=== PATIENT | female | born 1985 | race Caucasian/White ===

== ENCOUNTER → 2021-03-03 | Outpatient (REF) | LOC: M LAB 09:18 | PROVIDERS: ATTEND Nurse Practitioner Adult Health | DX: Z00.00 Encounter for general adult medical examination without abnormal findings (principal) ==

== ENCOUNTER → 2021-07-20 | Outpatient (REF) | LOC: M EMP 11:53 | PROVIDERS: ATTEND Family Medicine | DX: Z20.828 Contact with and (suspected) exposure to other viral communicable diseases (principal) ==

== ENCOUNTER → 2021-10-21 | Outpatient (CLI) | payer OTHER ==
--- NOTE | 2021-10-23 22:47 | ECHO ---
ECHOCARDIOGRAM DATE OF PROCEDURE: 10/21/2021 Age: 36 Gender: Female Height: 160 cm Weight: 90 kg REFERRING PHYSICIAN: Dr. Madhu Kang PATIENT LOCATION: Outpatient REASON FOR THE TESTING: Cystic fibrosis history, bicuspid aortic valve. 2D MEASUREMENTS: IVS 0.9 cm LV 4.7 cm LVPW 0.8 cm LA 2.8 cm Aorta 3.5 cm IVC 2.2 cm DOPPLER MEASURMENTS: Peak velocity across the aortic valve 1.7 m/s Peak velocity across the LVOT 0.79 m/s Peak gradient across the aortic valve 11.3 mmHg Mean gradient across the aortic valve 7 mmHg Mitral E 1.0, Mitral A 0.75 with a ratio of 1.4 Maximum tricuspid valve velocity 2.3 m/s 2D COMMENTS: 1. Normal left ventricular size, wall thickness, and normal global left ventricular systolic function. The estimated left ventricular systolic ejection fraction is 60% to 65%. 2. Normal left atrium. Normal right atrium and right ventricle. 3. The atrial septum appeared to be normal without evidence of defect or shunt. 4. Normal aortic root. 5. Trace pericardial effusion noted in limited views. 6. Marked bicuspid aortic valve, not well visualized. Normal mitral valve, tricuspid valve, and pulmonic valve. The proximal pulmonary artery branches were not well visualized. 7. The inferior vena cava was dilated, central venous pressure might be elevated, but maybe related to the . DOPPLER: It detects mild mitral regurgitation, mild tricuspid regurgitation. The calculated pulmonary artery systolic pressure is about 30 mmHg. Assessment of the left ventricular diastolic function appeared to be normal. IMPRESSION: 1. Normal global left ventricular systolic and diastolic function. 2. Probably bicuspid aortic valve with trivial aortic stenosis, but no aortic regurgitation. The aortic root was normal in size. 3. Mild mitral regurgitation. 4. Mild tricuspid regurgitation with probably mild pulmonary hypertension. 5. The inferior vena cava was mildly enlarged, probably related to the . MTDD
== END ==
LOC: M CARPUL 10:18
PROVIDERS: ATTEND Obstetrics & Gynecology
DX: O99.282 Endocrine, nutritional and metabolic diseases complicating pregnancy, second trimester (principal); E84.9 Cystic fibrosis, unspecified; Q23.1 Congenital insufficiency of aortic valve; E11.9 Type 2 diabetes mellitus without complications; Z3A.23 23 weeks gestation of pregnancy; O24.112 Pre-existing type 2 diabetes mellitus, in pregnancy, second trimester; O99.892 Other specified diseases and conditions complicating childbirth; O99.412 Diseases of the circulatory system complicating pregnancy, second trimester

== ENCOUNTER 2021-12-30 14:07 | Outpatient (CLI) | payer OTHER ==
[~2021-12-30] VITALS: Ht 160 cm; Wt 93.8 kg
[2021-12-30 14:31] VITALS: BP 100/58
[2021-12-30] MEDS ORDERED: CETI10CA2 PO (14:37)
[2021-12-30] MEDS ORDERED: PRENTAB9 PO (14:37)
[2021-12-30] MEDS ORDERED: ELEX1TAB PO (15:18)
[2021-12-30] MEDS ORDERED: [UNRECOGNIZED DRUG - CODE] MC (15:18)
[2021-12-30] MEDS ORDERED: HOME MED LIST COMPLETE! XX SCH (15:25)
== END 2021-12-30 15:24 | disposition home or self-care (01) ==
LOC: M LDO 14:07
PROVIDERS: ATTEND Obstetrics & Gynecology
DX: O26.893 Other specified pregnancy related conditions, third trimester (principal); N89.8 Other specified noninflammatory disorders of vagina; Z3A.35 35 weeks gestation of pregnancy; O47.03 False labor before 37 completed weeks of gestation, third trimester; Z14.1 Cystic fibrosis carrier; Z88.1 Allergy status to other antibiotic agents; Z88.8 Allergy status to other drugs, medicaments and biological substances; Z79.899 Other long term (current) drug therapy
CPT/HCPCS: 59025; 87081; 87186; G0378; G0463

== ENCOUNTER 2022-01-26 09:29 | Inpatient (IN) | payer OTHER ==
[2022-01-26] VITALS (42 sets, daily range): BP systolic 103–180; BP diastolic 60–103
[~2022-01-26] VITALS: Ht 160 cm; Wt 96.7 kg
[~2022-01-26 09:29] MED LIST: CETI10CA2 PO; ELEX1TAB PO; PRENTAB9 PO; [UNRECOGNIZED DRUG - CODE] MC
[2022-01-26] MEDS ORDERED: HOME MED LIST COMPLETE! XX SCH ×2 (10:10→11:35)
[2022-01-26] MEDS ORDERED: VITA100T56 PO (10:11)
[2022-01-26] MEDS ORDERED: OXYTOCIN DRIP 30 UNITS in IV 1 EA IV PRN (10:15)
[2022-01-26] MEDS ORDERED: METHYLERGONOVINE MALEATE 0.2 MG/ML VIAL (J2210) IM PRN (10:15)
[2022-01-26] MEDS ORDERED: LIDOCAINE 1% MDV 20ML VIAL INFIL PRN (10:15)
[2022-01-26] MEDS ORDERED: OXYTOCIN DRIP 30 UNITS in IV 1 EA IV SCH ×2 (11:05→20:55)
[2022-01-26 11:31] LABS: HEMATOCRIT 38.4 % (36.0-47.0); HEMOGLOBIN 13.8 g/dl (12.0-15.5); MEAN CORPUSCULAR HEMOGLOBIN 32.9 pg (27.0-33.0); MEAN CORPUSCULAR HGB CONC 35.9 g/dl (32.0-36.5); MEAN CORPUSCULAR VOLUME 91.4 fl (80.0-96.0); PLATELET COUNT, AUTOMATED 206 10^3/uL (150-450); WHITE BLOOD COUNT 10.6 10^3/uL (4.0-10.0)
[2022-01-26] MEDS ORDERED: BUTORPHANOL 2 MG/ML INJ (J0595) IV ONE ×2 (13:30→17:00)
[2022-01-26] MEDS ORDERED: PROMETHAZINE INJ 25 MG/ML VIAL (J2550) IV ONE (13:30)
[2022-01-26] MEDS: LR 1,000 ML IV SCH (14:28)
[2022-01-26] MEDS ORDERED: diphenhydrAMINE 50MG/ML VIAL (J1200) IV ONE (17:00)
[2022-01-26] MEDS ORDERED: FENTANYL 2MCG/ML ROPIVACAINE 0.2% IN 0.9% NACL 100ML IVBAG As Ordered ONE (17:51)
[2022-01-26] MEDS ORDERED: NALOXONE INJ 0.4MG/1ML VIAL (J2310 PER 1MG) IV PRN (18:20)
[2022-01-26] MEDS ORDERED: ONDANSETRON 4MG/2ML VIAL IV PRN (18:20)
[2022-01-26] MEDS ORDERED: EPIDURAL COMMENT XX SCH (18:20)
[2022-01-26] MEDS ORDERED: diphenhydrAMINE 50MG/ML VIAL (J1200) IV PRN (18:20)
[2022-01-26] MEDS ORDERED: EPIDURAL/PCA KEYS XX PRN (18:20)
[2022-01-26] MEDS ORDERED: REFRIGERATOR IV KEYS XX PRN (18:20)
[2022-01-26] MEDS ORDERED: LACTATED RINGER'S 1000 ML IV PRN (18:20)
[2022-01-26] MEDS ORDERED: ePHEDrine SULFATE 25 MG/5 ML(5MG/ML) SYRINGE IV PRN (18:20)
[2022-01-26] MEDS: FENTANYL/ROPIVACAINE/NACL BAG 100 ML EPIDURAL SCH (18:33)
[2022-01-26] MEDS: IVACAFTOR 150 MG PO SCH (18:38)
[2022-01-26] MEDS ORDERED: IBUPROFEN 600MG TAB PO PRN (20:55)
[2022-01-26] MEDS ORDERED: PROMETHAZINE 25 MG TAB PO PRN (20:55)
[2022-01-26] MEDS ORDERED: IBUPROFEN 800 MG TAB PO PRN (20:55)
[2022-01-26] MEDS ORDERED: ACETAMINOPHEN 500 MG TAB PO PRN (20:55)
[2022-01-26] MEDS ORDERED: RHOGAM 300 MCG (1500 IU) INJ (J2790) IM SCH (20:55)
[2022-01-26] MEDS ORDERED: MEASLES,MUMPS,RUBELLA VACCINE INJ (MMR-II) (90707) SC SCH (20:55)
[2022-01-26] MEDS ORDERED: ACETAMINOPHEN TAB 650MG DOSE (2X325MG) PO PRN (20:55)
[2022-01-26] MEDS ORDERED: DOCUSATE SODIUM 100MG CAPSULE PO PRN (20:55)
[2022-01-26] MEDS ORDERED: DIBUCAINE 1% OINTMENT 30GM TOP PRN (20:55)
[2022-01-26 21:04] LABS: CORD GAS ABE A -6.6; CORD GAS HCO3 A 22.5 MEQ/L; CORD GAS O2 SAT A 43.9 %; CORD GAS PCO2 A 61.1 mmHg; CORD GAS PH A 7.184 UNITS; CORD GAS PO2 A 21.3 mmHg; CORD GAS TCO2 A 24.4 MEQ/L
[2022-01-26 21:05] LABS: CORD GAS ABE V -5.2; CORD GAS HCO3 V 23.3 MEQ/L; CORD GAS O2 SAT V 54.4 %; CORD GAS PCO2 V 57.5 mmHg; CORD GAS PH V 7.226 UNITS; CORD GAS PO2 V 25.1 mmHg; CORD GAS SBC V 19.3 MEQ/L; CORD GAS TCO2 V 25.1 MEQ/L
[2022-01-27] MEDS: LR 1,000 ML IV SCH (02:26)
[2022-01-27] MEDS: FENTANYL/ROPIVACAINE/NACL BAG 100 ML EPIDURAL SCH (04:10)
[2022-01-27 06:00] VITALS: BP 120/71
[2022-01-27] MEDS: TRIKAFTA PO SCH (06:16)
[2022-01-27] MEDS: PRENATAL VITAMINS CHEWABLE TABLET PO SCH (08:11)
[2022-01-27 18:03] VITALS: BP 124/81
[2022-01-27] MEDS: IVACAFTOR 150 MG PO SCH (18:16)
[2022-01-28 05:51] VITALS: BP 130/73
[2022-01-28] MEDS: TRIKAFTA PO SCH (06:09)
[2022-01-28] MEDS ORDERED: IBUP80TA PO (07:05)
[2022-01-28] MEDS ORDERED: ACET-683 PO (07:05)
[2022-01-28] MEDS ORDERED: COLA100C5 PO (07:05)
[2022-01-28] MEDS: PRENATAL VITAMINS CHEWABLE TABLET PO SCH (09:15)
== END 2022-01-28 11:20 | disposition home or self-care (01) | DRG 807 ==
LOC: M LDI 09:29 → M OBS 22:15
PROVIDERS: ADMIT Obstetrics & Gynecology; ATTEND Obstetrics & Gynecology
PROC: 10E0XZZ Delivery of Products of Conception, External Approach (ICD-10-PCS; principal; 2022-01-26)
PROC: 3E033VJ Introduction of Other Hormone into Peripheral Vein, Percutaneous Approach (ICD-10-PCS; 2022-01-26)
PROC: 10907ZC Drainage of Amniotic Fluid, Therapeutic from Products of Conception, Via Natural or Artificial Opening (ICD-10-PCS; 2022-01-26)
DX: O80 Encounter for full-term uncomplicated delivery (principal); Z37.0 Single live birth; Z3A.39 39 weeks gestation of pregnancy

== ENCOUNTER → 2022-07-16 | Outpatient (CLI) | payer OTHER ==
[~2022-07-16] MED LIST changes: +ACET-683 PO; +COLA100C5 PO; +IBUP80TA PO; +VITA100T56 PO
== END ==
LOC: M WHC 14:13
PROVIDERS: ATTEND Internal Medicine Pulmonary Disease
DX: E84.9 Cystic fibrosis, unspecified (principal)

== ENCOUNTER → 2022-08-09 | Outpatient (REF) | payer OTHER | LOC: M LAB REF 09:48 | PROVIDERS: ATTEND Internal Medicine Pulmonary Disease | DX: E84.9 Cystic fibrosis, unspecified (principal) ==

== ENCOUNTER → 2023-10-10 | Outpatient (REF) | LOC: M EMP 10:55 | PROVIDERS: ATTEND Family Medicine | DX: Z11.52 Encounter for screening for COVID-19 (principal) ==

== ENCOUNTER → 2024-01-02 | Outpatient (REF) | payer OTHER | LOC: M LAB REF 10:00 | PROVIDERS: ATTEND Internal Medicine Pulmonary Disease | DX: Z22.39 Carrier of other specified bacterial diseases (principal) ==

== ENCOUNTER → 2024-01-09 | Outpatient (CLI) | payer OTHER | LOC: M RAD 09:48 | PROVIDERS: ATTEND Internal Medicine Pulmonary Disease | DX: Z22.39 Carrier of other specified bacterial diseases (principal); J47.9 Bronchiectasis, uncomplicated ==

== ENCOUNTER 2024-06-03 20:35 | Emergency (ER) | payer OTHER ==
[~2024-06-03] VITALS: Ht 160 cm; Wt 89.7 kg
[2024-06-03 20:36] VITALS: TEMP 97.4; O2SAT 99
[2024-06-03 20:40] VITALS: BP 142/84
[2024-06-03 21:16] LABS: BASO # 0.1 10^3/uL (0.0-0.2); BASO % 0.4 % (0.0-1.0); EOS # 0.2 10^3/uL (0.0-0.5); EOS % 1.6 % (0.0-3.0); HEMATOCRIT 43.2 % (36.0-47.0); HEMOGLOBIN 15.1 g/dl (12.0-15.5); LYMPH # 2.9 10^3/uL (1.5-5.0); LYMPH % 22.3 % (24.0-44.0); MEAN CORPUSCULAR HEMOGLOBIN 31.7 pg (27.0-33.0); MEAN CORPUSCULAR VOLUME 90.8 fl (80.0-96.0); MONO % 7.9 % (2.0-8.0); NEUTROPHILS # 8.7 10^3/uL (1.5-8.5); NEUTROPHILS % 67.4 % (36.0-66.0); PLATELET COUNT, AUTOMATED 280 10^3/uL (150-450); RED BLOOD COUNT 4.76 10^6/uL (4.00-5.40); WHITE BLOOD COUNT 12.9 10^3/uL (4.0-10.0)
[2024-06-03 21:44] LABS: LIPASE 38 U/L (12-53)
[2024-06-03 21:45] LABS: HCG, SERUM QUALITATIVE NEGATIVE (NEGATIVE)
[2024-06-03 21:46] LABS: ALBUMIN 3.8 G/DL (3.2-5.2); ALKALINE PHOSPHATASE 102 U/L (46-116); ALT/SGPT 17 U/L (7.0-40); AST/SGOT < 8 U/L (<34); BILIRUBIN,DIRECT 0.1 MG/DL (<0.4); BILIRUBIN,TOTAL 0.4 MG/DL (0.3-1.2); BLOOD UREA NITROGEN 17 MG/DL (9-23); CALCIUM LEVEL 9.4 MG/DL (8.5-10.1); CARBON DIOXIDE LEVEL 29 MMOL/L (20-31); CHLORIDE LEVEL 105 MMOL/L (98-107); CREATININE FOR GFR 0.82 MG/DL (0.55-1.30); GLOMERULAR FILTRATION RATE > 60.0 (>60); GLUCOSE, FASTING 75 MG/DL (60-100); POTASSIUM SERUM 3.5 MMOL/L (3.5-5.1); SODIUM LEVEL 141 MMOL/L (136-145); TOTAL PROTEIN 7.1 G/DL (5.7-8.2)
== END 2024-06-03 22:07 | disposition left against medical advice (07) ==
LOC: M ED 20:35
DX: Z53.21 Procedure and treatment not carried out due to patient leaving prior to being seen by health care provider (principal)

== ENCOUNTER 2024-06-19 16:42 | Inpatient (IN) | payer OTHER ==
[~2024-06-19] VITALS: Ht 160 cm; Wt 90.0 kg
[2024-06-19] MEDS: ACETAMINOPHEN TAB 650MG DOSE (2X325MG) PO ONE (19:12)
[2024-06-19 19:35] LABS: BASO % 0.2 % (0.0-1.0); HEMATOCRIT 40.6 % (36.0-47.0); HEMOGLOBIN 14.1 g/dl (12.0-15.5); LYMPH # 1.4 10^3/uL (1.5-5.0); LYMPH % 7.7 % (24.0-44.0); MEAN CORPUSCULAR HEMOGLOBIN 31.5 pg (27.0-33.0); MEAN CORPUSCULAR HGB CONC 34.7 g/dl (32.0-36.5); MEAN CORPUSCULAR VOLUME 90.6 fl (80.0-96.0); MONO # 2.5 10^3/uL (0.0-0.8); MONO % 13.9 % (2.0-8.0); NEUTROPHILS % 77.6 % (36.0-66.0); PLATELET COUNT, AUTOMATED 207 10^3/uL (150-450); RED BLOOD COUNT 4.48 10^6/uL (4.00-5.40)
[2024-06-19 20:02] LABS: BLOOD UREA NITROGEN 11 MG/DL (9-23); CALCIUM LEVEL 8.6 MG/DL (8.5-10.1); CARBON DIOXIDE LEVEL 27 MMOL/L (20-31); CHLORIDE LEVEL 101 MMOL/L (98-107); CREATININE FOR GFR 0.91 MG/DL (0.55-1.30); GLOMERULAR FILTRATION RATE > 60.0 (>60); GLUCOSE, FASTING 121 MG/DL (60-100); POTASSIUM SERUM 3.8 MMOL/L (3.5-5.1); SODIUM LEVEL 134 MMOL/L (136-145)
[2024-06-19] MEDS: PIPERACILLIN/TAZOBACTAM SOD 4.5 GM in D5W MINI-BAG PLUS 50 ML IV ONE (20:53)
[2024-06-19] MEDS: KETOROLAC 30 MG/ML 1ML VIAL IV ONE (20:55)
[2024-06-19] MEDS: NS 1,000 ML IV ONE (20:59)
[2024-06-19] MEDS: NS 1,660 ML in IV 1 EA IV ONE (22:16)
[2024-06-19] MEDS ORDERED: MOM 30ML SUSPENSION UDC PO PRN (23:25)
[2024-06-19] MEDS: NS 1,000 ML IV SCH (23:25)
[2024-06-19] MEDS ORDERED: ELEX1TAB PO (23:27)
[2024-06-19] MEDS ORDERED: HOME MED LIST COMPLETE! XX SCH (23:35)
[2024-06-19] MEDS ORDERED: PROMETHAZINE 25MG/ML 1ML VIAL IV PRN (23:40)
[2024-06-19] MEDS ORDERED: MORPHINE 2 MG/ML 1ML VIAL IV PRN (23:40)
[2024-06-20] MEDS: PIPERACILLIN/TAZOBACTAM SOD 4.5 GM in D5W MINI-BAG PLUS 50 ML IV SCH (02:56)
[2024-06-20] MEDS: ACETAMINOPHEN TAB 650MG DOSE (2X325MG) PO PRN (03:03)
[2024-06-20 07:24] LABS: HEMATOCRIT 37.3 % (36.0-47.0); HEMOGLOBIN 12.8 g/dl (12.0-15.5); MEAN CORPUSCULAR HEMOGLOBIN 31.1 pg (27.0-33.0); MEAN CORPUSCULAR HGB CONC 34.3 g/dl (32.0-36.5); MEAN CORPUSCULAR VOLUME 90.8 fl (80.0-96.0); PLATELET COUNT, AUTOMATED 171 10^3/uL (150-450); RED BLOOD COUNT 4.11 10^6/uL (4.00-5.40); WHITE BLOOD COUNT 12.1 10^3/uL (4.0-10.0)
[2024-06-20 07:48] LABS: ALBUMIN 2.6 G/DL (3.2-5.2); ALKALINE PHOSPHATASE 78 U/L (46-116); ALT/SGPT 15 U/L (7.0-40); AST/SGOT 10 U/L (<34); BILIRUBIN,TOTAL 0.6 MG/DL (0.3-1.2); BLOOD UREA NITROGEN 9 MG/DL (9-23); CALCIUM LEVEL 7.6 MG/DL (8.5-10.1); CARBON DIOXIDE LEVEL 25 MMOL/L (20-31); CHLORIDE LEVEL 109 MMOL/L (98-107); CREATININE FOR GFR 0.79 MG/DL (0.55-1.30); GLOMERULAR FILTRATION RATE > 60.0 (>60); GLUCOSE, FASTING 97 MG/DL (60-100); POTASSIUM SERUM 3.6 MMOL/L (3.5-5.1); SODIUM LEVEL 139 MMOL/L (136-145); TOTAL PROTEIN 5.4 G/DL (5.7-8.2)
[2024-06-20] MEDS: ENOXAPARIN 40MG/0.4ML SYRINGE (J1650 PER 10MG) SC SCH (09:04)
[2024-06-20] MEDS: KETOROLAC 30 MG/ML 1ML VIAL IV ONE (10:36)
[2024-06-20] MEDS: PANTOPRAZOLE 40MG TAB (PROTONIX) PO SCH (10:37)
[2024-06-20] MEDS: POTASSIUM CHLORIDE 10MEQ SR TABLET PO ONE (13:04)
[2024-06-20] MEDS: ACETAMINOPHEN 500 MG TAB PO PRN (15:16)
[2024-06-20] MEDS: KETOROLAC 30 MG/ML 1ML VIAL IV PRN (20:52)
[2024-06-20 21:15] VITALS: BP 127/80; TEMP 99; O2SAT 96
[2024-06-20 22:25] VITALS: TEMP 98.6
[2024-06-21 04:00] VITALS: BP 123/81; TEMP 97.2; O2SAT 96
[2024-06-21 06:15] LABS: HEMOGLOBIN 12.3 g/dl (12.0-15.5); MEAN CORPUSCULAR HEMOGLOBIN 31.1 pg (27.0-33.0); MEAN CORPUSCULAR HGB CONC 34.2 g/dl (32.0-36.5); MEAN CORPUSCULAR VOLUME 90.9 fl (80.0-96.0); PLATELET COUNT, AUTOMATED 171 10^3/uL (150-450); RED BLOOD COUNT 3.96 10^6/uL (4.00-5.40); WHITE BLOOD COUNT 11.1 10^3/uL (4.0-10.0)
[2024-06-21 06:43] LABS: BLOOD UREA NITROGEN 6 MG/DL (9-23); CALCIUM LEVEL 7.9 MG/DL (8.5-10.1); CARBON DIOXIDE LEVEL 24 MMOL/L (20-31); CHLORIDE LEVEL 109 MMOL/L (98-107); CREATININE FOR GFR 0.75 MG/DL (0.55-1.30); GLOMERULAR FILTRATION RATE > 60.0 (>60); GLUCOSE, FASTING 92 MG/DL (60-100); MAGNESIUM LEVEL 1.9 MG/DL (1.8-2.4); POTASSIUM SERUM 3.7 MMOL/L (3.5-5.1); SODIUM LEVEL 141 MMOL/L (136-145)
[2024-06-21 12:00] VITALS: BP 127/85; TEMP 97.9; O2SAT 100
[2024-06-21] MEDS: AMPICILLIN SOD/SULBACTAM SOD 3 GM in D5W MINI-BAG PLUS 100 ML IV SCH (14:40)
[2024-06-21 21:10] VITALS: BP 128/85; TEMP 97.7; O2SAT 97
[2024-06-22 04:00] VITALS: BP 128/85; TEMP 98.1; O2SAT 97
[2024-06-22] MEDS ORDERED: AUGM12TA11 PO (09:15)
== END 2024-06-22 11:32 | disposition home or self-care (01) | DRG 872 ==
LOC: M ED 16:42 → M ED INP 23:22 → M MSPAV 06-20 20:59
PROVIDERS: ADMIT Family Medicine; ATTEND Preventive Medicine Undersea and Hyperbaric Medicine
DX: A41.9 Sepsis, unspecified organism (principal); E84.9 Cystic fibrosis, unspecified; B96.20 Unspecified Escherichia coli [E. coli] as the cause of diseases classified elsewhere; I10 Essential (primary) hypertension; Z83.3 Family history of diabetes mellitus; Z79.899 Other long term (current) drug therapy; Z88.1 Allergy status to other antibiotic agents; Z88.8 Allergy status to other drugs, medicaments and biological substances

== ENCOUNTER 2024-11-02 15:19 | Emergency (ER) | payer OTHER ==
[~2024-11-02] VITALS: Ht 160 cm; Wt 89.9 kg
[~2024-11-02 15:19] MED LIST changes: +AUGM12TA11 PO
[2024-11-02] MEDS ORDERED: ACET-683 PO (15:30)
[2024-11-02] MEDS ORDERED: DEKA1CHW (15:30)
[2024-11-02] MEDS: KETOROLAC 30 MG/ML 1ML VIAL IV ONE (18:14)
[2024-11-02 19:01] LABS: BLOOD UREA NITROGEN 13 MG/DL (9-23); CALCIUM LEVEL 9.5 MG/DL (8.5-10.1); CARBON DIOXIDE LEVEL 28 MMOL/L (20-31); CHLORIDE LEVEL 102 MMOL/L (98-107); CREATININE FOR GFR 0.78 MG/DL (0.55-1.30); GLOMERULAR FILTRATION RATE > 60.0 (>60); GLUCOSE, FASTING 109 MG/DL (60-100); SODIUM LEVEL 136 MMOL/L (136-145)
[2024-11-02 19:03] LABS: HCG, SERUM QUALITATIVE NEGATIVE (NEGATIVE)
[2024-11-02] MEDS ORDERED: MACR100C43 PO (19:25)
[2024-11-02] MEDS: NITROFURANTOIN (MACROBID) 100 MG CAP PO ONE (19:38)
[2024-11-02 19:47] VITALS: BP 134/79; TEMP 97; O2SAT 97
== END 2024-11-02 19:59 | disposition home or self-care (01) ==
LOC: M ED 15:19
DX: N39.0 Urinary tract infection, site not specified (principal); E84.9 Cystic fibrosis, unspecified; Z79.899 Other long term (current) drug therapy; Z88.1 Allergy status to other antibiotic agents; Z88.3 Allergy status to other anti-infective agents; Z88.8 Allergy status to other drugs, medicaments and biological substances
CPT/HCPCS: 80048; 81001; 84703; 87486; 87581; 87633; 87798; 93005; 96374; 99284; J1885

== ENCOUNTER → 2025-01-08 | Outpatient (CLI) | payer OTHER ==
[~2025-01-08] MED LIST changes: +DEKA1CHW; +MACR100C43 PO
== END ==
LOC: M PLAIMG 15:24
PROVIDERS: ATTEND Nurse Practitioner Family
DX: N20.0 Calculus of kidney (principal)

== ENCOUNTER → 2025-03-12 | Outpatient (REF) | payer OTHER ==
[2025-03-12 19:01] LABS: APPEARANCE, URINE CLEAR (CLEAR); BACTERIA, URINE AUTO 2+ (NEGATIVE); BILIRUBIN, URINE AUTO NEGATIVE (NEGATIVE); BLOOD, URINE BLOOD NEGATIVE (NEGATIVE); COLOR, URINE COLORLESS (YELLOW); GLUCOSE, URINE (UA) AUTO NEGATIVE (NEGATIVE); KETONE, URINE AUTO NEGATIVE (NEGATIVE); LEUKOCYTE ESTERASE, URINE AUTO NEGATIVE (NEGATIVE); NITRITE, URINE AUTO NEGATIVE (NEGATIVE); PROTEIN, URINE AUTO NEGATIVE (NEGATIVE); RBC, URINE AUTO 0 /HPF (0-3); SPECIFIC GRAVITY URINE AUTO 1.002 (1.002-1.035); SQUAMOUS EPITHELIAL CELL UR AU 2 /HPF (0-6); UROBILINOGEN, URINE AUTO 0.2 mg/dL (0.0-2.0); WBC, URINE AUTO 1 /HPF (0-3)
== END ==
LOC: M SMT 16:47
PROVIDERS: ATTEND Nurse Practitioner Family
DX: Z87.448 Personal history of other diseases of urinary system (principal)

== ENCOUNTER → 2025-03-21 | Outpatient (REF) ==
[2025-03-21 09:20] LABS: APPEARANCE, URINE HAZY (CLEAR); BACTERIA, URINE AUTO 1+ (NEGATIVE); BILIRUBIN, URINE AUTO NEGATIVE (NEGATIVE); BLOOD, URINE BLOOD NEGATIVE (NEGATIVE); COLOR, URINE YELLOW (YELLOW); GLUCOSE, URINE (UA) AUTO NEGATIVE (NEGATIVE); KETONE, URINE AUTO NEGATIVE (NEGATIVE); LEUKOCYTE ESTERASE, URINE AUTO NEGATIVE (NEGATIVE); MUCUS, URINE SMALL (NEGATIVE); NITRITE, URINE AUTO NEGATIVE (NEGATIVE); PROTEIN, URINE AUTO NEGATIVE (NEGATIVE); RBC, URINE AUTO 1 /HPF (0-3); SPECIFIC GRAVITY URINE AUTO 1.008 (1.002-1.035); SQUAMOUS EPITHELIAL CELL UR AU 5 /HPF (0-6); UROBILINOGEN, URINE AUTO 0.2 mg/dL (0.0-2.0); WBC, URINE AUTO 1 /HPF (0-3)
[2025-03-21 09:23] LABS: BASO % 0.4 % (0.0-1.0); EOS # 0.1 10^3/uL (0.0-0.5); EOS % 1.1 % (0.0-3.0); HEMATOCRIT 42.8 % (36.0-47.0); HEMOGLOBIN 14.8 g/dl (12.0-15.5); LYMPH # 2.1 10^3/uL (1.5-5.0); LYMPH % 39.1 % (24.0-44.0); MEAN CORPUSCULAR HEMOGLOBIN 30.8 pg (27.0-33.0); MEAN CORPUSCULAR HGB CONC 34.6 g/dl (32.0-36.5); MONO # 0.6 10^3/uL (0.0-0.8); MONO % 10.7 % (2.0-8.0); NEUTROPHILS # 2.6 10^3/uL (1.5-8.5); NEUTROPHILS % 48.3 % (36.0-66.0); PLATELET COUNT, AUTOMATED 225 10^3/uL (150-450); RED BLOOD COUNT 4.81 10^6/uL (4.00-5.40); WHITE BLOOD COUNT 5.4 10^3/uL (4.0-10.0)
[2025-03-21 09:50] LABS: ALBUMIN 3.5 G/DL (3.2-5.2); ALKALINE PHOSPHATASE 94 U/L (35-104); ALT/SGPT 17 U/L (7.0-40); AST/SGOT 11 U/L (<34); BILIRUBIN,TOTAL 0.6 MG/DL (0.3-1.2); BLOOD UREA NITROGEN 14 MG/DL (9-23); CALCIUM LEVEL 8.7 MG/DL (8.5-10.1); CARBON DIOXIDE LEVEL 29 MMOL/L (20-31); CHLORIDE LEVEL 104 MMOL/L (98-107); CREATININE FOR GFR 0.84 MG/DL (0.55-1.30); GLOMERULAR FILTRATION RATE > 90.0 (>60); GLUCOSE, FASTING 91 MG/DL (60-100); POTASSIUM SERUM 4.5 MMOL/L (3.5-5.1); SODIUM LEVEL 140 MMOL/L (136-145)
[2025-03-21 09:54] LABS: THYROID STIMULATING HORMONE 1.334 uIU/ML (0.55-4.78)
== END ==
LOC: M LAB 08:48
PROVIDERS: ATTEND Family Medicine
DX: Z01.89 Encounter for other specified special examinations (principal)